=== PATIENT | female | born 1995 | race African-American/Black ===

== ENCOUNTER 2023-03-28 18:46 | Emergency (ER) | payer OTHER ==
[2023-03-28] MEDS ORDERED: SODIUM CHLORIDE 0.9% 1,000 ML IV STA ×2 (19:12)
[2023-03-28 19:18] LABS: BILIRUBIN,URINE NEGATIVE (NEGATIVE); GLUCOSE, URINE (UA) NEGATIVE (NEGATIVE); KETONES,URINE (UA) NEGATIVE (NEGATIVE); LEUKOCYTE ESTERASE, URINE NEGATIVE (NEGATIVE); NITRITE,URINE NEGATIVE (NEGATIVE); OCCULT BLOOD,URINE LARGE (NEGATIVE); PH,URINE 5.5 PH (5.0-7.5); PROTEIN,URINE >=300 mg/dL (NEGATIVE); UROBILINOGEN,URINE 1 (NORMAL) E.U./dL (NORMAL)
[2023-03-28 19:19] LABS: BASOPHILS % (AUTO) 0.2 %; EOSINOPHILS # (AUTO) 0.2 10^3/uL (0.0-0.7); EOSINOPHILS % (AUTO) 4.6 %; HCT - HEMATOCRIT 36.6 % (37.0-47.0); HGB - HEMOGLOBIN 12.1 g/dL (12.0-16.0); LYMPHOCYTES % (AUTO) 41.7 %; MEAN CORPUSCULAR HEMOGLOBIN 30.8 pg (27.0-31.0); MEAN CORPUSCULAR HGB CONC 33.1 g/dL (32.0-36.0); MEAN CORPUSCULAR VOLUME 93.1 fL (81.0-99.0); MEAN PLATELET VOLUME 9.6 fL (7.9-10.8); MONOCYTES # (AUTO) 0.5 10^3/uL (0.0-1.0); MONOCYTES % (AUTO) 10.2 %; NEUTROPHILS # (AUTO) 2.1 10^3/uL (1.5-6.6); NEUTROPHILS % (AUTO) 43.3 %; PLT - PLATELET COUNT 245 10^3/uL (130-450); RED BLOOD COUNT 3.93 10^6/uL (4.20-5.40); RED CELL DISTRIBUTION WIDTH 12.5 % (12.0-15.0); WHITE BLOOD COUNT 4.8 x10^3/uL (4.8-10.8)
--- NOTE | 2023-03-28 19:19 | ED Physician Documentation ---
History of Present Illness - Stated complaint Stated Complaint: FLANK PAIN - Chief complaint Chief Complaint: General - Additonal information Additional information: 27-year-old female presents emergency department for evaluation of cola colored urine. She reports that she had not worked out for a while and on Saturday and Saturday she worked out harder than she typically would have in the past. She did a lot of leg presses and bench lifts. States she could hardly work walk the day after the workout. Yesterday she began noticing some cola colored urine. She does have some pain in the low back. No fevers nausea or vomiting. No dysu ross. No history of similar. Patient patient does not take NSAIDs. Takes no prescribed medications otherwise Review of Systems Constitutional: reports: Myalgias Cardiac: reports: Reviewed and negative Respiratory: reports: Reviewed and negative Musculoskeletal: reports: Extremity pain PD PAST MEDICAL HISTORY - Present Medications Home Medications: Ambulatory Orders Medication Instructions Recorded Confirmed No Known Home Medications 03/28/23 03/28/23 - Allergies Allergies/Adverse Reactions: Allergies Allergy/AdvReac Type Severity Reaction Status Date / Time No Known Drug Allergies Allergy Verified 03/28/23 18:55 PD ED PE NORMAL - General General: Alert and oriented X 3, No acute distress, Well developed/nourished - HEENT HEENT: Atraumatic - Neck Neck: Supple, no meningeal sign, No adenopathy - Cardiac Cardiac: RRR, No murmur - Respiratory Respiratory: No respiratory distress, Clear bilaterally - Abdomen Abdomen: Normal bowel sounds, Soft - Derm Derm: Normal color, Warm and dry - Extremities Extremities: No deformity - Neuro Neuro: Alert and oriented X 3, primary products inspectors 2-12 intact Eye Opening: Spontaneous Motor: Obeys Commands Verbal: Oriented GCS Score: 15 - Psych Psych: Normal mood Results - Vitals Vitals: Vital Signs - 24 hr 03/28/23 03/28/23 03/28/23 18:47 20:06 21:23 Temperature 36.4 C L Heart Rate 57 L 59 L 62 Respiratory 20 16 16 Rate Blood Pressure 112/62 112/84 H 116/89 H O2 Saturation 100 100 100 Oxygen O2 Source Room air - Labs Labs: Laboratory Tests 03/28/23 03/28/23 03/28/23 19:00 19:00 19:14 WBC 4.8 RBC 3.93 L Hgb 12.1 Hct 36.6 L MCV 93.1 MCH 30.8 MCHC 33.1 RDW 12.5 Plt Count 245 MPV 9.6 Neut # (Auto) 2.1 Lymph # (Auto) 2.0 [place] # (Auto) 0.5 Eos # (Auto) 0.2 Baso # (Auto) 0.0 Absolute Nucleated RBC 0.00 Nucleated RBC % 0.0 Sodium Potassium Chloride Carbon Dioxide Anion Gap BUN Creatinine Estimated GFR (MDRD) Glucose Calcium Phosphorus Magnesium Total Bilirubin AST ALT Alkaline Phosphatase Lactate Dehydrogenase Total Creatine Kinase Total Protein Albumin Globulin Albumin/Globulin Ratio Lipase Urine Color DARK YELLOW Urine Clarity CLEAR Urine pH 5.5 Ur Specific [place] >=1.030 H Urine Protein >=300 H Urine Glucose (UA) NEGATIVE Urine Ketones NEGATIVE Urine Occult Blood LARGE H Urine Nitrite NEGATIVE Urine Bilirubin NEGATIVE Urine Urobilinogen 1 (NORMAL) Ur Leukocyte Esterase NEGATIVE Urine RBC 6-10 H Urine WBC 0-3 Ur Squamous Epith Cells MOD Squamous H Urine Bacteria Moderate H Urine Mucus Few Strands Ur Microscopic Review INDICATED Urine Culture Comments NOT INDICATED Urine HCG, Qual NEGATIVE 03/28/23 03/28/23 03/28/23 19:14 19:14 19:22 WBC RBC Hgb Hct MCV MCH MCHC RDW Plt Count MPV Neut # (Auto) Lymph # (Auto) [place] # (Auto) Eos # (Auto) Baso # (Auto) Absolute Nucleated RBC Nucleated RBC % Sodium 138 Potassium 3.8 Chloride 104 Carbon Dioxide 30 Anion Gap 4.0 L BUN 14 Creatinine 1.0 Estimated GFR (MDRD) 81 L Glucose 103 H Calcium 8.9 Phosphorus 3.8 Magnesium 1.9 Total Bilirubin 0.3 AST 2742 H ALT 557 H Alkaline Phosphatase 35 L Lactate Dehydrogenase > 5400 H Total Creatine Kinase > 72551 H* Total Protein 6.7 Albumin 3.8 Globulin 2.9 Albumin/Globulin Ratio 1.3 Lipase 35 Urine Color Urine Clarity Urine pH Ur Specific [place] Urine Protein Urine Glucose (UA) Urine Ketones Urine Occult Blood Urine Nitrite Urine Bilirubin Urine Urobilinogen Ur Leukocyte Esterase Urine RBC Urine WBC Ur Squamous Epith Cells Urine Bacteria Urine Mucus Ur Microscopic Review Urine Culture Comments Urine HCG, Qual PD Medical Decision Making - ED course Complexity details: reviewed results, re-evaluated patient, considered differential, d/w patient ED course: 27-year-old female comes to the emergency department for evaluation of cola colored urine. She reports working out heavily on March 25 and . On the she was having a lot of difficulty walking and pain in her legs and arms. At this time she also began to notice cola colored urine. [facility] come to the ER for concerns of possible rhabdo. Here in the emergency department the patient is alert well-appearing. She has no fever or tachycardia or hypotension. We did initially order CBC, electrolytes and a CK. Per my interpretation patient is noted to have marked LFT abnormalities. She does have a normal BUN and creatinine but her CK is markedly elevated at greater than 82,000. Given the initial concern for likely rhabdomyolysis I initially ordered 2 L of saline to be bolused on presentation to the ER. Once the markedly elevated LFTs and CK were noted I initiated D5 bicarbonate drip to infuse at 200 cc an hour. I also asked nursing staff to place a Friedman catheter with a goal urinary output of 150 to 200 mL an hour. At this time no bed for admission is available here at [facility]. In addition given the marked LFT abnormalities as well as the significant CK elevation she may warrant more specialized care than is available here, including nephrology We will attempt to transfer the patient to an outlying hospital that may have more capability and services. 2119: I reevaluated the patient. With the initiation of IV fluids her urine is beginning to clear. I have spoken with Dr. Alvarenga a hospitalist at [facility] who graciously agrees to accept the patient in transfer. I have notified the patient of plan to transfer and she is in agreement. Appropriate [employer] paperwork was completed. Departure - Departure Disposition: 02 Transfer Acute Care Hosp Clinical Impression: Rhabdomyolysis Qualifiers: Rhabdomyolysis type: non-traumatic Qualified Code(s): M62.82 - Rhabdomyolysis
[2023-03-28 19:20] LABS: HCG UR QUAL NEGATIVE
[2023-03-28 19:22] LABS: CLARITY,URINE CLEAR (CLEAR)
[2023-03-28 19:30] LABS: BACTERIA,URINE Moderate /HPF (None Seen); SQUAMOUS EPITHELIAL CELL,UR MOD Squamous (<= Few); WBC,URINE 0-3 /HPF (0-5)
[2023-03-28 19:31] LABS: MUCUS,URINE Few Strands
[2023-03-28 20:12] LABS: ALBUMIN 3.8 g/dL (3.2-5.5); ALBUMIN/GLOBULIN RATIO 1.3 (1.0-2.2); ALKALINE PHOSPHATASE 35 IU/L (42-121); ALT ALANINE AMINOTRANSFERASE 557 IU/L (10-60); AST ASPARTATE AMINOTRANSFERASE 2742 IU/L (10-42); BILIRUBIN,TOTAL 0.3 mg/dL (0.2-1.0); BUN - BLOOD UREA NITROGEN 14 mg/dL (6-20); CALCIUM 8.9 mg/dL (8.5-10.3); CARBON DIOXIDE - CO2 30 mmol/L (21-32); CHLORIDE 104 mmol/L (101-111); GFR - MDRD 81 (>89); GLUCOSE 103 mg/dL (70-100); LIPASE 35 U/L (22-51); POTASSIUM 3.8 mmol/L (3.5-5.0); SODIUM 138 mmol/L (135-145); TOTAL PROTEIN 6.7 g/dL (6.7-8.2)
[2023-03-28 20:18] LABS: CK- CREATINE KINASE > 82000 IU/L (22-269)
[2023-03-28] MEDS ORDERED: SODIUM BICARBONATE 150 MEQ in DEXTROSE 5% 1,000 ML IV STA (20:30)
[2023-03-28 20:52] LABS: MAGNESIUM 1.9 mg/dL (1.7-2.8); PHOSPHORUS 3.8 mg/dL (2.5-4.6)
[2023-03-28 21:41] VITALS: BP 112/87
== END 2023-03-28 22:27 | disposition short-term general hospital (02) ==
LOC: ED 18:46
DX: M62.82 Rhabdomyolysis (principal); R74.01 Elevation of levels of liver transaminase levels; R74.8 Abnormal levels of other serum enzymes
CPT/HCPCS: 36415; 51702; 80053; 81001; 81003; 81025; 82550; 83615; 83690; 83735; 84100; 85025; 87086; 99284

== ENCOUNTER 2023-03-28 22:27 | Outpatient (CLI) | payer OTHER | END 2023-03-28 23:59 | disposition short-term general hospital (02) | LOC: EMS 22:27 | PROVIDERS: ATTEND Registered Nurse | DX: M62.82 Rhabdomyolysis (principal) | CPT/HCPCS: A0425; A0426 ==

== ENCOUNTER 2023-04-01 16:52 | Outpatient (CLI) | payer OTHER ==
[2023-04-01 18:10] LABS: ALBUMIN 4.2 g/dL (3.2-5.5); ALBUMIN/GLOBULIN RATIO 1.4 (1.0-2.2); BILIRUBIN,TOTAL 0.4 mg/dL (0.2-1.0); CALCIUM 9.7 mg/dL (8.5-10.3); CREATININE 0.9 mg/dL (0.4-1.0); POTASSIUM 3.4 mmol/L (3.5-5.0); TOTAL PROTEIN 7.3 g/dL (6.7-8.2)
== END 2023-04-01 16:53 | disposition home or self-care (01) ==
LOC: LAB 16:52
PROVIDERS: ATTEND Family Medicine
DX: M62.82 Rhabdomyolysis (principal)
CPT/HCPCS: 36415; 80053; 82550